=== PATIENT | male | born 1950 | race Caucasian/White ===

== ENCOUNTER 2020-12-30 07:02 | Day surgery (SDC) | payer MEDICARE, BC ==
[~2020-12-30] VITALS: Ht 177.8 cm; Wt 81.6 kg
[~2020-12-30 07:02] MED LIST: ACETAMINOPHEN 650 MG/20.3 ML UDC PO PRN; BISACODYL 10 MG SUPP PR PRN; CEFAZOLIN PMX 2GM/50ML 50 ML IVPB SCH; DIPHENHYDRAMINE 25 MG CAPSULE PO PRN; EPINEPHRINE 1 MG/ML, 1ML ONE; HYDROcodone/APAP 5/325 TABLET PO PRN; KETOROLAC 30 MG/1 ML ONE; MAGNESIUM HYDROXIDE 8%, 30ML UDC PO PRN; NS + 20MEQ KCL 1,000 ML IV SCH; ONDANSETRON 2MG/ML, 2ML IV PRN; ONDANSETRON 4 MG TABLET PO PRN; OXYcodone IR 5MG TABLET PO PRN; ROPIvacaine/PF 0.5%, 20 ML ONE; ROPIvacaine/PF 0.5%, 30 ML ONE; SENNA/DOCUSATE TABLET PO PRN; SODIUM CHLORIDE 0.9% 50 ML ONE; TRANEXAMIC ACID 100 MG/ML, 10ML ONE; VANCOMYCIN 1,000 MG ONE; ZOLPIDEM 5MG TABLET PO PRN
[2020-12-30] MEDS ORDERED: CHLORHEXIDINE 15 ML UDC ONE (07:28)
[2020-12-30] MEDS ORDERED: CHLORHEXIDINE 15 ML UDC PO ONE (07:30)
[2020-12-30] MEDS ORDERED: LACTATED RINGERS 1,000 ML IV SCH (07:30)
[2020-12-30] MEDS ORDERED: LOVA10TA PO (07:35)
[2020-12-30 07:39] VITALS: BP 133/81
[2020-12-30] MEDS ORDERED: FENTANYL PF 250 MCG/5ML ONE (07:41)
[2020-12-30] MEDS ORDERED: GABAPENTIN 300 MG CAPSULE PO ONE (08:00)
[2020-12-30] MEDS ORDERED: ACETAMINOPHEN 500 MG TABLET PO ONE (08:00)
[2020-12-30 08:14] LABS: BASOPHILS % (AUTO) 1 % (0-1); EOSINOPHILS % (AUTO) 1 % (1-7); LYMPHOCYTES % (AUTO) 23 % (22-44); MEAN CORPUSCULAR HEMOGLOBIN 24.5 pg (27.5-34.5); MEAN CORPUSCULAR HGB CONC 32.3 g/dL (33.2-36.2); MEAN PLATELET VOLUME 7.5 fL (7.4-10.4); MONOCYTES % (AUTO) 12 % (2-9); NEUTROPHILS % (AUTO) 63 % (42-75); PLATELET COUNT 311 x10^3/uL (130-400); RED BLOOD COUNT 4.61 x10^6/uL (4.38-5.82); RED CELL DISTRIBUTION WIDTH 18.4 % (9.4-14.8)
[2020-12-30 08:23] LABS: ANION GAP 4 mmol/L (5-15); CALCIUM 8.5 mg/dL (8.5-10.1); CHLORIDE 108 mmol/L (98-107); INTERNATIONAL NORMALIZED RATIO 1.02 (0.93-1.1); PROTHROMBIN TIME 10.9 Seconds (9.6-11.5)
[2020-12-30 08:24] LABS: CREATININE 0.84 mg/dL (0.7-1.3)
[2020-12-30] MEDS ORDERED: OXYcodone 5 MG/5 ML ORAL.SOL UDC PO PRN (09:00)
[2020-12-30] MEDS ORDERED: LORazepam 2 MG/ML, 1ML IVPush PRN (09:00)
[2020-12-30] MEDS ORDERED: MEPERIDINE/PF 25MG/0.5ML IVPush PRN (09:00)
[2020-12-30] MEDS ORDERED: FENTANYL PF 100 MCG/2ML IV PRN (09:00)
[2020-12-30] MEDS ORDERED: HYDROmorphone 1 MG/ML, 1ML INJ IVPush PRN (09:00)
[2020-12-30] MEDS ORDERED: PROMETHAZINE 12.5 MG SUPP PR PRN (09:00)
[2020-12-30] MEDS ORDERED: METHOCARBAMOL 1,000 MG in DEXTROSE 5% 100 ML IV PRN (09:00)
[2020-12-30] MEDS ORDERED: ONDANSETRON 2MG/ML, 2ML IVPush PRN (09:00)
[2020-12-30] MEDS ORDERED: PROMETHAZINE 25 MG/ML, 1ML IVPush PRN (09:00)
[2020-12-30] MEDS ORDERED: DOCUSATE 100 MG CAPSULE PO SCH (09:00)
[2020-12-30] MEDS ORDERED: ONDANSETRON 2MG/ML, 2ML ONE (09:05)
[2020-12-30] MEDS ORDERED: PROPOFOL 10 MG/ML, 20ML ONE (09:05)
[2020-12-30] MEDS ORDERED: CEFAZOLIN 1,000 MG ONE (09:05)
[2020-12-30] MEDS ORDERED: DEXAMETHASONE 4 MG/ML, 1ML ONE (09:05)
[2020-12-30] MEDS ORDERED: FENTANYL PF 100 MCG/2ML ONE (09:37)
[2020-12-30] MEDS ORDERED: ACETAMINOPHEN 650 MG/20.3 ML UDC ONE (10:15)
[2020-12-30] MEDS ORDERED: ASPIRIN 81 MG TABLET EC PO SCH (18:00)
[2020-12-31] MEDS ORDERED: DEXAMETHASONE 4 MG/ML, 1ML IVPush SCH (06:00)
== END 2020-12-30 15:30 | disposition home or self-care (01) ==
LOC: OUT 07:02
PROVIDERS: ATTEND Orthopaedic Surgery
DX: M25.551 Pain in right hip (principal); M16.11 Unilateral primary osteoarthritis, right hip; Z72.89 Other problems related to lifestyle; Z79.899 Other long term (current) drug therapy
CPT/HCPCS: 27130; 36415; 73501; 80048; 85025; 85610; 85730; 87081; 87635; 93005; 97161; 97166; C1713; C1776; J0171; J0690; J1100; J1885; J2405; J2704; J2795; J3010; J3370; J7120; 76000